=== PATIENT | female | born 1945 | race Caucasian/White ===

== ENCOUNTER 2021-02-21 17:33 | Emergency (ER) | payer OTHER, MEDICAID ==
[~2021-02-21] VITALS: Ht 152.4 cm; Wt 80.0 kg
[2021-02-21] MEDS ORDERED: SODIUM CHLORIDE 0.9% 250 ML IRRIG SOLUTION BOTTLE IRRIG ONE (18:45)
[2021-02-21] MEDS ORDERED: PERTUSS(ACELL),DIPH,TET VAC/PF 0.5 ML SYRINGE IM ONE (18:45)
[2021-02-21] MEDS ORDERED: IBUPROFEN 600 MG TABLET PO ONE (18:45)
[2021-02-21 21:11] VITALS: BP 127/69
== END 2021-02-21 21:11 | disposition home or self-care (01) ==
LOC: EMS 17:35
DX: S80.02XA Contusion of left knee, initial encounter (principal); S50.312A Abrasion of left elbow, initial encounter; J44.9 Chronic obstructive pulmonary disease, unspecified; W01.0XXA Fall on same level from slipping, tripping and stumbling without subsequent striking against object, initial encounter; Y93.89 Activity, other specified; Y92.89 Other specified places as the place of occurrence of the external cause; Y99.8 Other external cause status
CPT/HCPCS: 29530; 90471; 90715; 99284

== ENCOUNTER 2022-09-22 07:22 | Emergency (ER) | payer OTHER, MEDICAID ==
[~2022-09-22] VITALS: Ht 157.5 cm; Wt 56.8 kg
[2022-09-22 08:00] LABS: EOSINOPHILS % (AUTO) 3.4 % (1.0-6.0); HEMATOCRIT 39.7 % (36-46); LYMPHOCYTES # (AUTO) 1.3 K/uL (1.0-4.8); LYMPHOCYTES % (AUTO) 24.9 % (22.0-44.0); MEAN CORPUSCULAR HEMOGLOBIN 30.6 pg (26.0-34.0); MEAN CORPUSCULAR HGB CONC 32.9 G/dL (31.0-37.0); MEAN CORPUSCULAR VOLUME 93 fL (80-100); MONOCYTES # (AUTO) 0.4 K/uL (0.1-1.0); NEUTROPHILS # (AUTO) 3.2 K/uL (1.8-7.7); NEUTROPHILS % (AUTO) 62.7 % (40.0-70.0); PLATELET COUNT (AUTO) 185 K/uL (150-450); RED BLOOD CELL COUNT(AUTO) 4.26 MIL/uL (4.00-5.20)
[2022-09-22] MEDS: MECLIZINE HCL 25 MG TABLET PO ONE (08:07)
[2022-09-22] MEDS: ACETAMINOPHEN 500 MG TABLET PO ONE (08:07)
[2022-09-22] MEDS: ONDANSETRON HCL 4 MG/2 ML VIAL IVP ONE (08:09)
[2022-09-22 08:10] LABS: ANION GAP 3 mmol/L (8-16); CALCIUM, TOTAL 9.6 mg/dL (8.8-10.5); CARBON DIOXIDE 31 mmol/L (22-29); CHLORIDE 105 mmol/L (98-107); CREATININE 0.77 mg/dL (0.60-1.30); GLUCOSE,RANDOM 109 mg/dL (70-110); POTASSIUM 4.7 mmol/L (3.5-5.1); SODIUM SERUM 139 mmol/L (136-145); UREA NITROGEN, BLOOD 20 mg/dL (7-18)
[2022-09-22 08:13] LABS: GLOMERULAR FILTR. RATE CALC > 60 mL/min (>60)
[2022-09-22 08:15] LABS: ALANINE AMINOTRANSFERASE 15 U/L (12-78); ALBUMIN 3.2 g/dL (3.4-5.0); ALKALINE PHOSPHATASE 70 U/L (46-116); ASPARTATE AMINOTRANSFERASE 14 U/L (15-37); BILIRUBIN,TOTAL 0.6 mg/dL (0.1-1.0); TOTAL PROTEIN, SERUM 6.9 g/dL (6.4-8.2)
[2022-09-22] MEDS ORDERED: MECL-134 PO (10:15)
[2022-09-22] MEDS ORDERED: ACET-66 PO (10:15)
[2022-09-22 11:44] VITALS: BP 141/72
== END 2022-09-22 11:47 | disposition home or self-care (01) ==
LOC: EMS 07:23
DX: R42 Dizziness and giddiness (principal); R05.9 Cough, unspecified; I10 Essential (primary) hypertension
CPT/HCPCS: 99285; 96374; 70450; 71045; 80053; 84484; 85025; 36415; 93005; J2405

== ENCOUNTER 2022-11-06 00:41 | Emergency (ER) | payer OTHER, MEDICAID ==
[~2022-11-06] VITALS: Ht 152.4 cm; Wt 59.1 kg
[~2022-11-06 00:41] MED LIST: ACET-66 PO; MECL-134 PO
[2022-11-06 01:31] LABS: COVID AG,FIA SOURCE NASAL SWAB
[2022-11-06] MEDS ORDERED: TRAZ-252 PO (01:41)
[2022-11-06] MEDS ORDERED: LETR2.5 PO (01:41)
[2022-11-06] MEDS ORDERED: CYAN25002 SL (01:41)
[2022-11-06] MEDS ORDERED: OS500 PO (01:41)
[2022-11-06 01:50] LABS: INFLUENZA TYPE A NEGATIVE FOR TYPE A (NEGATIVE); INFLUENZA TYPE B NEGATIVE FOR TYPE B (NEGATIVE)
[2022-11-06 02:12] LABS: BASOPHILS % (AUTO) 0.6 % (0.0-2.0); EOSINOPHILS % (AUTO) 1.6 % (1.0-6.0); HEMATOCRIT 36.8 % (36-46); HEMOGLOBIN 12.2 g/dL (12.0-16.0); LYMPHOCYTES # (AUTO) 1.9 K/uL (1.0-4.8); LYMPHOCYTES % (AUTO) 24.7 % (22.0-44.0); MEAN CORPUSCULAR HGB CONC 33.2 G/dL (31.0-37.0); MEAN CORPUSCULAR VOLUME 94 fL (80-100); MONOCYTES # (AUTO) 0.7 K/uL (0.1-1.0); NEUTROPHILS # (AUTO) 4.9 K/uL (1.8-7.7); NEUTROPHILS % (AUTO) 64.1 % (40.0-70.0); PLATELET COUNT (AUTO) 189 K/uL (150-450); RED BLOOD CELL COUNT(AUTO) 3.93 MIL/uL (4.00-5.20); RED CELL DISTRIBUTION WIDTH 13.7 % (11.5-14.5)
[2022-11-06 02:22] LABS: ANION GAP 6 mmol/L (8-16); CALCIUM, TOTAL 9.5 mg/dL (8.8-10.5); CARBON DIOXIDE 30 mmol/L (22-29); CHLORIDE 101 mmol/L (98-107); CREATININE 0.79 mg/dL (0.60-1.30); GLUCOSE,RANDOM 134 mg/dL (70-110); POTASSIUM 4.1 mmol/L (3.5-5.1); SODIUM SERUM 137 mmol/L (136-145); UREA NITROGEN, BLOOD 18 mg/dL (7-18)
[2022-11-06 02:24] LABS: GLOMERULAR FILTR. RATE CALC > 60 mL/min (>60)
[2022-11-06 02:27] LABS: ALANINE AMINOTRANSFERASE 13 U/L (12-78); ALBUMIN 3.2 g/dL (3.4-5.0); ALKALINE PHOSPHATASE 78 U/L (46-116); ASPARTATE AMINOTRANSFERASE 12 U/L (15-37); BILIRUBIN,TOTAL 0.5 mg/dL (0.1-1.0); TOTAL PROTEIN, SERUM 7.1 g/dL (6.4-8.2)
[2022-11-06 02:28] LABS: PROTHROMBIN TIME 10.9 SEC (9.4-11.6)
[2022-11-06] MEDS ORDERED: ALBUTEROL SULFATE 5 MG/ML 20 ML NEB SOLN [BULK] NEB ONE (02:30)
[2022-11-06] MEDS ORDERED: IPRATROPIUM BROMIDE 0.5 MG/2.5 ML NEB SOLUTION NEB ONE (02:30)
[2022-11-06 02:35] LABS: B-TYPE NATRIURETIC PEPTIDE 34 pg/mL (0-100)
[2022-11-06 05:00] VITALS: BP 135/68
== END 2022-11-06 05:57 | disposition home or self-care (01) ==
LOC: EMS 00:42
DX: J44.9 Chronic obstructive pulmonary disease, unspecified (principal); Z79.899 Other long term (current) drug therapy; Z20.822 Contact with and (suspected) exposure to COVID-19
CPT/HCPCS: 71045; 80053; 83880; 84484; 85025; 85610; 85730; 87804; 93005; 94640; 99285; 36415-L1; 36415-TC; J7611

== ENCOUNTER 2022-11-07 01:30 | Inpatient (IN) | payer OTHER, MEDICAID ==
[~2022-11-07] VITALS: Ht 170.2 cm; Wt 58.3 kg
[~2022-11-07 01:30] MED LIST changes: -ACET-66 PO; +CYAN25002 SL; +LETR2.5 PO; -MECL-134 PO; +OS500 PO; +TRAZ-252 PO
[2022-11-07 02:30] LABS: COVID AG,FIA SOURCE NASAL SWAB
[2022-11-07 02:32] LABS: BASOPHILS % (AUTO) 1.3 % (0.0-2.0); EOSINOPHILS % (AUTO) 2.5 % (1.0-6.0); HEMOGLOBIN 12.3 g/dL (12.0-16.0); LYMPHOCYTES # (AUTO) 2.3 K/uL (1.0-4.8); LYMPHOCYTES % (AUTO) 31.9 % (22.0-44.0); MEAN CORPUSCULAR HEMOGLOBIN 31.5 pg (26.0-34.0); MEAN CORPUSCULAR HGB CONC 34.2 G/dL (31.0-37.0); MEAN CORPUSCULAR VOLUME 92 fL (80-100); MONOCYTES # (AUTO) 0.7 K/uL (0.1-1.0); MONOCYTES % (AUTO) 9.1 % (2.0-9.0); NEUTROPHILS % (AUTO) 55.2 % (40.0-70.0); PLATELET COUNT (AUTO) 205 K/uL (150-450); RED BLOOD CELL COUNT(AUTO) 3.89 MIL/uL (4.00-5.20); RED CELL DISTRIBUTION WIDTH 13.9 % (11.5-14.5)
[2022-11-07 02:42] LABS: ANION GAP 4 mmol/L (8-16); CALCIUM, TOTAL 9.3 mg/dL (8.8-10.5); CARBON DIOXIDE 31 mmol/L (22-29); CHLORIDE 104 mmol/L (98-107); CREATININE 0.75 mg/dL (0.60-1.30); GLOMERULAR FILTR. RATE CALC > 60 mL/min (>60); GLUCOSE,RANDOM 123 mg/dL (70-110); POTASSIUM 3.8 mmol/L (3.5-5.1); SODIUM SERUM 139 mmol/L (136-145); UREA NITROGEN, BLOOD 15 mg/dL (7-18)
[2022-11-07 02:48] LABS: ALANINE AMINOTRANSFERASE 13 U/L (12-78); ALBUMIN 3.2 g/dL (3.4-5.0); ALKALINE PHOSPHATASE 75 U/L (46-116); ASPARTATE AMINOTRANSFERASE 12 U/L (15-37); BILIRUBIN,TOTAL 0.3 mg/dL (0.1-1.0); TOTAL PROTEIN, SERUM 6.3 g/dL (6.4-8.2)
[2022-11-07 02:56] LABS: B-TYPE NATRIURETIC PEPTIDE 53 pg/mL (0-100); PROTHROMBIN TIME 10.6 SEC (9.4-11.6)
[2022-11-07 04:08] VITALS: BP 141/66
[2022-11-07 07:30] VITALS: BP 119/62
[2022-11-07] MEDS ORDERED: ACETAMINOPHEN 325 MG TABLET PO PRN (07:45)
[2022-11-07] MEDS ORDERED: IPRATROPIUM BROMIDE 0.5 MG/2.5 ML NEB SOLUTION NEB PRN (07:45)
[2022-11-07] MEDS ORDERED: ALBUTEROL SULFATE 2.5 MG/0.5 ML NEB SOLUTION NEB PRN (07:45)
[2022-11-07] MEDS: DOCUSATE SODIUM 100 MG CAPSULE PO SCH ×2 (08:54→21:00)
[2022-11-07] MEDS: HEPARIN SODIUM,PORCINE 5,000 UNITS/ML VIAL SQ SCH ×2 (08:54→16:57)
[2022-11-07] MEDS: FAMOTIDINE 20 MG TABLET PO SCH (08:54)
[2022-11-07] MEDS: AZITHROMYCIN 500 MG TABLET PO SCH (08:54)
[2022-11-07 11:00] VITALS: BP 149/58
[2022-11-07] MEDS: MethylPREDNISolone SOD SUCC 125 MG/2 ML VIAL IVP SCH ×2 (12:11→16:57)
[2022-11-07 15:38] VITALS: BP 138/69
[2022-11-07 20:05] VITALS: BP 110/61
[2022-11-08 00:02] VITALS: BP 134/89
[2022-11-08] MEDS: MethylPREDNISolone SOD SUCC 125 MG/2 ML VIAL IVP SCH ×2 (00:04→06:40)
[2022-11-08] MEDS: HEPARIN SODIUM,PORCINE 5,000 UNITS/ML VIAL SQ SCH ×3 (00:04→16:00)
[2022-11-08 04:49] VITALS: BP 151/69
[2022-11-08 07:36] VITALS: BP 135/66
[2022-11-08] MEDS: DOCUSATE SODIUM 100 MG CAPSULE PO SCH (08:02)
[2022-11-08] MEDS: FAMOTIDINE 20 MG TABLET PO SCH (08:02)
[2022-11-08] MEDS: AZITHROMYCIN 500 MG TABLET PO SCH (08:02)
[2022-11-08] MEDS ORDERED: PredniSONE 20 MG TABLET PO ONE (09:15)
[2022-11-08 11:08] VITALS: BP 149/67
[2022-11-08] MEDS ORDERED: PRED-729 PO (14:21)
[2022-11-08] MEDS ORDERED: AZIT250T9 PO (14:21)
[2022-11-08] MEDS ORDERED: PRED-554 PO (14:21)
[2022-11-08 15:49] VITALS: BP 143/71
== END 2022-11-08 17:10 | disposition home or self-care (01) | DRG 192 ==
LOC: EMS 01:31 → 5S 03:00
PROVIDERS: ADMIT Internal Medicine; ATTEND Internal Medicine
DX: J44.0 Chronic obstructive pulmonary disease with (acute) lower respiratory infection (principal); J44.1 Chronic obstructive pulmonary disease with (acute) exacerbation; J20.9 Acute bronchitis, unspecified; Z79.899 Other long term (current) drug therapy; Z20.822 Contact with and (suspected) exposure to COVID-19
CPT/HCPCS: 71045; 80053; 83880; 84484; 85025; 85610; 85730; 93005; 99285; J1644; J2930; Q9967; 36415-L1; 36415-TC